=== PATIENT | female | born 1975 | race Two or more races ===

== ENCOUNTER 2020-07-18 10:45 | Inpatient (IN) | payer OTHER ==
[~2020-07-18] VITALS: Ht 167.6 cm; Wt 71.7 kg
[2020-07-18] MEDS ORDERED: COZAAR100 MG PO (12:53)
[2020-07-18] MEDS ORDERED: METFORMIN HCL500 M3 PO (12:53)
[2020-07-18] MEDS ORDERED: HYDROCHLOROTHIA25 MG PO (12:53)
[2020-07-28] MEDS ORDERED: CODE1TAB37 PO (07:58)
[2020-07-28] MEDS ORDERED: IBUPROFEN600 MG PO (07:58)
== END 2020-07-28 08:55 | disposition home or self-care (01) | DRG 743 ==
LOC: O/R 07-25 07:43 → OB/GYN 07-25 07:43 → SURH 07-25 09:15 → OB/GYN 07-25 15:04
PROVIDERS: ADMIT Obstetrics & Gynecology; ATTEND Obstetrics & Gynecology
PROC: 0UB70ZZ Excision of Bilateral Fallopian Tubes, Open Approach (ICD-10-PCS; 2020-07-25)
PROC: 0TJB8ZZ Inspection of Bladder, Via Natural or Artificial Opening Endoscopic (ICD-10-PCS; 2020-07-25)
PROC: 0UT90ZZ Resection of Uterus, Open Approach (ICD-10-PCS; principal; 2020-07-25 09:15)
DX: N72 Inflammatory disease of cervix uteri (principal); D25.1 Intramural leiomyoma of uterus; D25.0 Submucous leiomyoma of uterus; N32.89 Other specified disorders of bladder